=== PATIENT | male | born 1980 | race Hispanic/Latino ===

== ENCOUNTER 2018-01-08 21:16 | Emergency (ER) | payer BC ==
[2018-01-08] MEDS ORDERED: METHYLPREDNISOLONE SOD SUCC 40MG/ML 1ML ONE (21:47)
[2018-01-08] MEDS ORDERED: ACETAMINOPHEN-CODEINE ELIXIR 5 ML UDCUP ONE (21:48)
[2018-01-08] MEDS ORDERED: DEXAMETHASONE SOD PHOSPHATE 4 MG/ML 1ML VIAL ONE (21:48)
== END 2018-01-08 22:45 | disposition home or self-care (01) ==
LOC: EDH 21:16
DX: R51 Headache (principal); B34.9 Viral infection, unspecified; Z98.890 Other specified postprocedural states
CPT/HCPCS: 96372 ×2; 99284; J1100; J2920